=== PATIENT | female | born 1975 | race Two or more races ===

== ENCOUNTER 2022-10-15 10:32 | Outpatient (CLI) | payer OTHER | END 2022-10-15 10:49 | disposition home or self-care (01) | LOC: MAMO-SONO 10:32 | PROVIDERS: ATTEND Obstetrics & Gynecology | DX: N60.11 Diffuse cystic mastopathy of right breast (principal); N60.12 Diffuse cystic mastopathy of left breast; Z12.31 Encounter for screening mammogram for malignant neoplasm of breast; R10.2 Pelvic and perineal pain ==

== ENCOUNTER 2024-11-10 12:47 | Outpatient (CLI) | payer OTHER | END 2024-11-10 12:55 | disposition home or self-care (01) | LOC: SONOGRAMA 12:47 | DX: E04.1 Nontoxic single thyroid nodule (principal) ==